=== PATIENT | female | born 1950 | race African-American/Black ===

== ENCOUNTER 2020-05-17 23:27 | Emergency (ER) | payer OTHER ==
[~2020-05-17] VITALS: Ht 160 cm; Wt 54.4 kg
[2020-05-17 23:41] VITALS: Ht 160 cm; Wt 54.4 kg
[2020-05-18 00:50] LABS: BASOPHIL % 0.6 % (0-2); PLATELET COUNT 301 x10^3mcL (130-400); RED CELL DISTRIBUTION WIDTH 12.8 % (11.5-14.5)
[2020-05-18 01:08] LABS: CALCIUM 6.2 mg/dL (8.5-10.1); CHLORIDE SERUM 101 mmol/L (98-107); CREATININE SERUM 2.1 mg/dL (0.6-1.0); GLUCOSE SERUM 85 mg/dL (74-106); POTASSIUM SERUM 3.1 mmol/L (3.5-5.1); SODIUM SERUM 142 mmol/L (136-145)
[2020-05-18 01:13] LABS: ALBUMIN 1.4 g/dL (3.4-5.0); ALKALINE PHOSPHATASE 162 U/L (46-116); ALT/SGPT 43 U/L (14-59); AST/SGOT 42 U/L (15-37); BILIRUBIN TOTAL 1.04 mg/dL (0.20-1.00); TOTAL PROTEIN, SERUM 5.3 g/dL (6.4-8.2)
[2020-05-18 03:16] VITALS: BP 103/61
== END 2020-05-18 03:30 | disposition home or self-care (01) ==
LOC: ED 23:27
PROVIDERS: Emergency Medicine
DX: R22.43 Localized swelling, mass and lump, lower limb, bilateral (principal); E87.6 Hypokalemia; E83.51 Hypocalcemia; E86.0 Dehydration; N17.9 Acute kidney failure, unspecified; E46 Unspecified protein-calorie malnutrition; R77.0 Abnormality of albumin; G62.9 Polyneuropathy, unspecified; Z88.0 Allergy status to penicillin
CPT/HCPCS: 83880